=== PATIENT | male | born 1985 | race Caucasian/White ===

== ENCOUNTER 2016-08-05 15:19 | Emergency (ER) | payer MEDICAID ==
--- NOTE | 2016-08-05 15:38 | UCPHY ---
H & P Patient Type: New HPI/ROS: HPI CHIEF COMPLAINT: Nausea, vomiting, diarrhea x3 months HISTORY OF PRESENT ILLNESS: This patient very pleasant 30-year-old male no significant medical history except for bilateral since, presents to the urgent care stating over the past 3 months every other week he has had nausea vomiting diarrhea. Patient also tells me feels fatigued. Denies chest pain, shortness of breath, high fever. He states he last vomited last had diarrhea a few days ago. His abdomen does not hurt him he currently he feels no nausea no vomiting and has not had diarrhea today. States he sick of dealing with it for the past 3 months and wants to be evaluated for. He specifically requesting blood work. Currently upon arrival here to the urgent care he has no complaints. He does not have a primary care doctor. He tells me he is waiting for his insurance card. Past Medical History:Pilonidal cyst Past Surgical History: pilonidal cyst drainage Social History: occasional alcohol use, occasional marijuana use, denies other illicit drugs or tobacco Family History: Noncontributory ROS REVIEW OF SYSTEMS: A comprehensive 10 point review of systems is otherwise negative aside from elements mentioned in the history of present illness. Exam Constitutional triage nursing summary reviewed, vital signs reviewed, awake/ alert. Eyes normal conjunctivae and sclera, EOMI, PERRLA. HENT normal inspection, atraumatic, moist mucus membranes, no epistaxis, neck supple/ no meningismus, no raccoon eyes. Respiratory clear to auscultation bilaterally, normal breath sounds, no respiratory distress, no wheezing. Cardiovascular rate normal, regular rhythm, no murmur, no edema, distal pulses normal. Gastrointestinal soft, non-tender, no rebound, no guarding, normal bowel sounds, no distension, no pulsatile mass. Genitourinary no CVA tenderness. Musculoskeletal no midline vertebral tenderness, full range of motion, no calf swelling, no tenderness of extremities, no meningismus, good pulses, neurovascularly intact. Skin pink, warm, & dry, no rash, skin atraumatic. Neurologic awake, alert and oriented x 3, AAOx3, moves all 4 extremities equally, motor intact, sensory intact, CN II-XII intact, normal cerebellar, normal vision, normal speech. Psychiatric normal mood/affect. Heme/Lymph/Immune no lymphadenopathy. Differential Diagnosis: Includes but is not limited to in a particular order, dehydration, electrolyte abnormality, thyroid disease, mono, underlying GI illness, Crohn's, ulcer colitis, H pylori, peptic ulcer disease, gastritis, food allergy Medical Decision Making: plan for this patient he will have an IV established obtain blood work, he has no abdominal pain chest pain shortness of breath fever nausea vomiting or diarrhea at this time. Patient is requesting blood work to see he has underlying medical conditions causing him to have nausea vomiting diarrhea intermittently over the last 3 months. Re-evaluation: 174: re-examination at this time this patient is resting comfortably no acute distress. Blood work has been reviewed the patient. I will place him on Zantac and Zofran. He needs to follow up with Gastroenterology. He understands return to the urgent care or emergency room if he has worsening symptoms questions or concerns. Source: Patient - Personal History Tetanus Vaccine Date: 2008 - Medical/Surgical History Hx Asthma: Yes Hx Chronic Respiratory Disease: Yes Hx Diabetes: No Hx Cardiac Disease: No Hx Renal Disease: No Hx Cirrhosis: No Hx Alcoholism: No Hx HIV/AIDS: No Hx Splenectomy or Spleen Trauma: No Other PMH: PCP none. Hx Asthma, L foot surgery - Family History Significant Family History: No pertinent family hx - Social History Smoking Status: Current every day smoker Constitutional: Initial Vital Signs Temperature (C) 37 C 08/05/16 15:38 Heart Rate 78 08/05/16 15:38 Respiratory Rate 18 08/05/16 15:38 Blood Pressure 147/102 H 08/05/16 15:38 O2 Sat (%) 97 08/05/16 15:38 O2 Delivery Mode Room Air Allergies/Adverse Reactions: No Known Allergies Allergy (Verified 11/27/15 08:52) Home Medications: Medication Instructions Recorded Albuterol [Proventil Neb] 3 ml IH 07/25/11 predniSONE [predniSONE] 60 mg PO DAILY 3 Days 11/27/15 Ondansetron Odt [Zofran Odt 4 mg 4 mg PO Q4 PRN #20 tab 08/05/16 (RX)] Ranitidine HCl [Zantac] 150 mg PO DAILY #30 tablet 08/05/16 Medical Decision Making - Data Points Laboratory Results: Laboratory Results 08/05/16 16:30 08/05/16 16:30 08/05/16 08/05/16 08/05/16 16:30 16:30 16:30 WBC 10.28 10^3/uL H 10^3/uL (3.80-9.50) RBC 5.59 10^6/uL 10^6/uL (4.40-6.38) Hgb 17.4 g/dL g/dL (13.7-17.5) Hct 49.5 % % (40.0-51.0) MCV 88.6 fL fL (81.5-99.8) MCH 31.1 pg pg (27.9-34.1) MCHC 35.2 g/dL g/dL (32.4-36.7) RDW 12.6 % % (11.5-15.2) Plt Count 234 10^3/uL 10^3/uL (150-400) MPV 9.3 fL fL (8.7-11.7) Neut % (Auto) 60.4 % % (39.3-74.2) Lymph % (Auto) 30.4 % % (15.0-45.0) Knox % (Auto) 4.7 % % (4.5-13.0) Eos % (Auto) 3.7 % % (0.6-7.6) Baso % (Auto) 0.5 % % (0.3-1.7) Nucleat RBC Rel Count 0.0 % % (0.0-0.2) Absolute Neuts (auto) 6.21 10^3/uL 10^3/uL (1.70-6.50) Absolute Lymphs (auto) 3.13 10^3/uL H 10^3/uL (1.00-3.00) Absolute Monos (auto) 0.48 10^3/uL 10^3/uL (0.30-0.80) Absolute Eos (auto) 0.38 10^3/uL 10^3/uL (0.03-0.40) Absolute Basos (auto) 0.05 10^3/uL 10^3/uL (0.02-0.10) Absolute Nucleated RBC 0.00 10^3/uL 10^3/uL (0-0.01) Immature Gran % 0.3 % % (0.0-1.1) Immature Gran # 0.03 10^3/uL 10^3/uL (0.00-0.10) ESR 3 MM/HR MM/HR (0-15) PT INR APTT Sodium 140 mEq/L mEq/L (134-144) Potassium 4.3 mEq/L mEq/L (3.5-5.2) Chloride 103 mEq/L mEq/L (97-110) Carbon Dioxide 23 mEq/l mEq/l (22-31) Anion Gap 14 mEq/L mEq/L (8-16) BUN 10 mg/dL mg/dL (7-23) Creatinine 0.6 mg/dL L mg/dL (0.7-1.3) Estimated GFR > 60 Glucose 79 mg/dL mg/dL (70-100) Calcium 9.8 mg/dL mg/dL (8.5-10.4) Total Bilirubin 0.6 mg/dL mg/dL (0.1-1.4) Conjugated Bilirubin 0.3 mg/dL mg/dL (0.0-0.5) Unconjugated Bilirubin 0.3 mg/dL mg/dL (0.0-1.1) AST 33 IU/L IU/L (17-59) ALT 62 IU/L IU/L (21-72) Alkaline Phosphatase 77 IU/L IU/L (38-126) C-Reactive Protein Pending Total Protein 8.0 g/dL g/dL (6.3-8.2) Albumin 4.5 g/dL g/dL (3.5-5.0) Lipase 106.0 IU/L IU/L (23-300) TSH 3.630 uIU/mL uIU/mL (0.465-4.680) H. pylori IgG Antibody NEGATIVE (NEG) Monoscreen NEGATIVE (NEGATIVE) 08/05/16 15:55 WBC RBC Hgb Hct MCV MCH MCHC RDW Plt Count MPV Neut % (Auto) Lymph % (Auto) Knox % (Auto) Eos % (Auto) Baso % (Auto) Nucleat RBC Rel Count Absolute Neuts (auto) Absolute Lymphs (auto) Absolute Monos (auto) Absolute Eos (auto) Absolute Basos (auto) Absolute Nucleated RBC Immature Gran % Immature Gran # ESR PT 12.4 SEC SEC (12.0-15.0) INR 0.95 (0.83-1.16) APTT 27.2 SEC SEC (23.0-38.0) Sodium Potassium Chloride Carbon Dioxide Anion Gap BUN Creatinine Estimated GFR Glucose Calcium Total Bilirubin Conjugated Bilirubin Unconjugated Bilirubin AST ALT Alkaline Phosphatase C-Reactive Protein Total Protein Albumin Lipase TSH H. pylori IgG Antibody Monoscreen Departure - Departure Disposition: Home, Routine, Self-Care Clinical Impression: Nausea and vomiting Qualifiers: Vomiting type: unspecified Vomiting Intractability: non-intractable Qualified Code(s): R11.2 - Nausea with vomiting, unspecified Condition: Good Instructions: Acute Nausea and Vomiting (ED), Acute Diarrhea (ED) Referrals: NONE *PRIMARY CARE P,. [Primary Care Provider] - As per Instructions Blair Sousa MD [Medical Doctor] - As per Instructions Prescriptions: Ondansetron Odt [Zofran Odt 4 mg (RX)] 4 mg PO Q4 PRN #20 tab PRN Reason: for nausea Ranitidine HCl [Zantac] 150 mg PO DAILY #30 tablet - PQRS PQRS Measurement: n/a
[2016-08-05 15:42] VITALS: BP 147/102; PULSE 78; RESP 18; TEMP 98.6; O2SAT 97
[2016-08-05 16:40] LABS: % IMMATURE GRANULYOCYTES 0.3 % (0.0-1.1); ABSOLUTE IMMATURE GRANULOCYTES 0.03 10^3/uL (0.00-0.10); ADD DIFF? NO; ADD MORPH? NO; ADD SCAN? NO; ATYPICAL LYMPHOCYTE FLAG 10 (0-99); FRAGMENT RBC FLAG 0 (0-99); HEMATOCRIT 49.5 % (40.0-51.0); HEMOGLOBIN 17.4 g/dL (13.7-17.5); LEFT SHIFT FLG 0 (0-99); LIPEMIA HEMOLYSIS FLAG 90 (0-99); MEAN CELL HEMOGLOBIN 31.1 pg (27.9-34.1); MEAN CELL HEMOGLOBIN CONCENTR. 35.2 g/dL (32.4-36.7); MEAN CELL VOLUME 88.6 fL (81.5-99.8); MEAN PLATELET VOLUME 9.3 fL (8.7-11.7); PLATELET CLUMPS FLAG 10 (0-99); PLATELET COUNT 234 10^3/uL (150-400); RED BLOOD CELL COUNT 5.59 10^6/uL (4.40-6.38); RED CELL DISTRIBUTION WIDTH 12.6 % (11.5-15.2)
[2016-08-05 16:55] LABS: ALANINE AMINOTRANSFERASE 62 IU/L (21-72); ALBUMIN 4.5 g/dL (3.5-5.0); ALKALINE PHOSPHATASE 77 IU/L (38-126); ANION GAP 14 mEq/L (8-16); ASPARTATE AMINOTRANSFERASE 33 IU/L (17-59); BILIRUBIN,TOTAL 0.6 mg/dL (0.1-1.4); BILIRUBIN-CONJUGATED 0.3 mg/dL (0.0-0.5); BILIRUBIN-UNCONJUGATED 0.3 mg/dL (0.0-1.1); CALCIUM 9.8 mg/dL (8.5-10.4); CARBON DIOXIDE 23 mEq/l (22-31); CHLORIDE 103 mEq/L (97-110); CREATININE 0.6 mg/dL (0.7-1.3); GLOMERULAR FILTRATION RATE > 60; GLUCOSE 79 mg/dL (70-100); POTASSIUM 4.3 mEq/L (3.5-5.2); SODIUM 140 mEq/L (134-144)
[2016-08-05 16:57] LABS: MONO TEST NEGATIVE (NEGATIVE)
[2016-08-05 16:59] LABS: SEDIMENTATION RATE 3 MM/HR (0-15)
[2016-08-05 17:23] LABS: INR 0.95 (0.83-1.16); PROTIME(PATIENT) 12.4 SEC (12.0-15.0)
[2016-08-05 17:24] LABS: APTT 27.2 SEC (23.0-38.0)
[2016-08-05 22:23] LABS: C-REACTIVE PROTEIN 6.5 mg/L (<10.0)
== END 2016-08-05 18:09 | disposition home or self-care (01) ==
LOC: CED 15:19
DX: R11.2 Nausea with vomiting, unspecified (principal); F12.10 Cannabis abuse, uncomplicated; F17.200 Nicotine dependence, unspecified, uncomplicated
CPT/HCPCS: 80048-PO; 80076-PO; 83690-PO; 84443-PO; 85025-PO; 85610-PO; 85652-PO; 85730-PO; 86308-PO; 86677-PO; 99204-PO; G0463-PO